=== PATIENT | male | born 2000 | race Caucasian/White ===

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

== ENCOUNTER 2020-05-20 12:52 | Emergency (ER) | payer MEDICAID ==
[2020-05-20] MEDS ORDERED: BUFFERED LIDOCAINE 10 ML SYRINGE SUBQ STA (13:26)
--- NOTE | 2020-05-20 13:28 | ED Physician Documentation ---
History of Present Illness - Stated complaint Stated Complaint: MALE - Chief complaint Chief Complaint: General - History obtained from History obtained from: Patient - Additonal information Additional information: 20-year-old gentleman who chronically has issues with constipation and diarrhea. Recently had a few days worth of diarrhea and was wiping his rear end a lot and then noticed more pain and some purulent drainage today. No fevers. Review of Systems Constitutional: reports: Reviewed and negative Eyes: reports: Reviewed and negative Ears: reports: Reviewed and negative Throat: reports: Reviewed and negative Cardiac: reports: Reviewed and negative Respiratory: reports: Reviewed and negative PD PAST MEDICAL HISTORY - Past Medical History Psych: ADD/ADHD - Past Surgical History Past Surgical History: No Ortho: Other - Present Medications Home Medications: Ambulatory Orders Medication Instructions Recorded Confirmed Benzonatate [Tessalon] 100 mg PO TID PRN #20 capsule 09/02/16 guaiFENesin/DEXTROMETHORPHAN 10 ml PO Q6H PRN #120 ml 09/02/16 [Robitussin Dm] Bacitracin Zinc Oint 1 applic TOP BID #4 tube 02/26/20 Oxycodone HCl/Acetaminophen 1 - 2 each PO Q6H PRN #14 tablet 02/26/20 [Percocet 5-325 mg Tablet] Amox/Clav 875/125 [Augmentin] 1 each PO Q12H #14 tablet 05/20/20 - Allergies Allergies/Adverse Reactions: Allergies Allergy/AdvReac Type Severity Reaction Status Date / Time methylphenidate HCl * AdvReac Severe suicudal Verified 05/20/20 13:02 [From [employer]] - Social History Does the pt smoke?: No Smoking Status: Never smoker Does the pt drink ETOH?: No Does the pt have substance abuse?: No - Immunizations Immunizations are current?: Yes - POLST Patient has POLST: No PD ED PE NORMAL - Vitals Vital signs reviewed: Yes - General General: Alert and oriented X 3, No acute distress - Rectal Rectal: Other (He has a very small perianal abscess at 6:00 with tenderness and mild spontaneous drainage.) - Back Back: No CVA TTP, No spinal TTP - Neuro Neuro: Alert and oriented X 3, Normal speech Results - Vitals Vitals: Vital Signs - 24 hr 05/20/20 05/20/20 12:58 13:20 Temperature 36.6 C 36.6 C Heart Rate 95 95 Respiratory 18 18 Rate Blood Pressure 144/83 H 144/83 H O2 Saturation 99 99 Oxygen O2 Source Room air Procedures - Abscess I&D (location) Perirectal at 6am Preparation: Betadine, Lidocaine 1% Incision: Incised with scalpel, Purulent drainage (small amt) Other: Pt tolerated well, Dressing applied, Antibiotic prescribed PD MEDICAL DECISION MAKING - ED course ED course: 20-year-old gentleman with a small perirectal abscess incompletely but partially drained on initial evaluation. Will do I&D and placed on some antibiotics. Given his ongoing varying bowel symptoms and the association with this at his young age probably needs to follow-up with colonoscopy and will be referred to surgery for same. Departure - Departure Disposition: 01 Home, Self Care Clinical Impression: Perirectal abscess Condition: Good Record reviewed to determine appropriate education?: Yes Instructions: ED Swetha Anal Abscess IandD Follow-Up: Alfredo Meeks MD [Provider Admit Priv/Credential] - Prescriptions: Amox/Clav 875/125 [Augmentin] 1 each PO Q12H #14 tablet Comments: Follow-up with the surgeon listed on this form for wound check and consideration for colonoscopy. Return if worsening.
[2020-05-20 13:41] VITALS: BP 148/82
== END 2020-05-20 13:43 | disposition home or self-care (01) ==
LOC: ED 12:52
DX: K61.1 Rectal abscess (principal)
CPT/HCPCS: 46040

== ENCOUNTER 2020-05-31 08:00 | Outpatient (CLI) | payer MEDICAID ==
[2020-05-31 18:33] LABS: BASOPHILS # (AUTO) 0.1 10^3/uL (0.0-0.1); BASOPHILS % (AUTO) 0.7 %; EOSINOPHILS # (AUTO) 0.3 10^3/uL (0.0-0.7); EOSINOPHILS % (AUTO) 4.6 %; LYMPHOCYTES # (AUTO) 1.9 10^3/uL (1.5-3.5); LYMPHOCYTES % (AUTO) 28.1 %; MEAN CORPUSCULAR HEMOGLOBIN 30.2 pg (27.0-31.0); MEAN CORPUSCULAR HGB CONC 33.5 g/dL (32.0-36.0); MEAN CORPUSCULAR VOLUME 90.3 fL (80.0-94.0); MEAN PLATELET VOLUME 10.2 fL (7.4-11.4); MONOCYTES # (AUTO) 0.5 10^3/uL (0.0-1.0); MONOCYTES % (AUTO) 6.8 %; NEUTROPHILS # (AUTO) 4.1 10^3/uL (1.5-6.6); NEUTROPHILS % (AUTO) 59.5 %; PLT - PLATELET COUNT 294 10^3/uL (130-450); RED BLOOD COUNT 4.63 10^6/uL (4.70-6.10); RED CELL DISTRIBUTION WIDTH 12.9 % (12.0-15.0); WHITE BLOOD COUNT 6.9 x10^3/uL (4.8-10.8)
[2020-05-31 18:59] LABS: ALBUMIN 4.6 g/dL (3.2-5.5); ALBUMIN/GLOBULIN RATIO 1.4 (1.0-2.2); BILIRUBIN,TOTAL 0.9 mg/dL (0.2-1.0); CALCIUM 9.3 mg/dL (8.5-10.3); CREATININE 0.8 mg/dL (0.6-1.2); TOTAL PROTEIN 7.8 g/dL (6.7-8.2)
== END 2020-05-31 23:59 | disposition home or self-care (01) ==
LOC: LAB.WCP 08:00
PROVIDERS: ATTEND Family Medicine
DX: K62.5 Hemorrhage of anus and rectum (principal)
CPT/HCPCS: 36415; 80053; 85025

== ENCOUNTER 2021-09-07 19:09 | Emergency (ER) | payer MEDICAID ==
[2021-09-07 19:42] LABS: BASOPHILS # (AUTO) 0.1 10^3/uL (0.0-0.1); BASOPHILS % (AUTO) 0.7 %; EOSINOPHILS # (AUTO) 0.4 10^3/uL (0.0-0.7); EOSINOPHILS % (AUTO) 4.6 %; HCT - HEMATOCRIT 41.4 % (42.0-52.0); HGB - HEMOGLOBIN 14.2 g/dL (14.0-18.0); LYMPHOCYTES # (AUTO) 2.6 10^3/uL (1.5-3.5); LYMPHOCYTES % (AUTO) 29.5 %; MEAN CORPUSCULAR HEMOGLOBIN 29.8 pg (27.0-31.0); MEAN CORPUSCULAR HGB CONC 34.3 g/dL (32.0-36.0); MEAN CORPUSCULAR VOLUME 86.8 fL (80.0-94.0); MEAN PLATELET VOLUME 9.5 fL (7.4-11.4); MONOCYTES # (AUTO) 0.9 10^3/uL (0.0-1.0); MONOCYTES % (AUTO) 9.5 %; NEUTROPHILS # (AUTO) 4.9 10^3/uL (1.5-6.6); NEUTROPHILS % (AUTO) 55.5 %; PLT - PLATELET COUNT 282 10^3/uL (130-450); RED BLOOD COUNT 4.77 10^6/uL (4.70-6.10); WHITE BLOOD COUNT 8.9 x10^3/uL (4.8-10.8)
[2021-09-07 19:55] LABS: ALBUMIN 4.6 g/dL (3.2-5.5); ALBUMIN/GLOBULIN RATIO 1.4 (1.0-2.2); BILIRUBIN,TOTAL 0.7 mg/dL (0.2-1.0); CALCIUM 9.1 mg/dL (8.5-10.3); CREATININE 0.8 mg/dL (0.6-1.2); POTASSIUM 3.5 mmol/L (3.5-5.0); TOTAL PROTEIN 7.8 g/dL (6.7-8.2)
--- NOTE | 2021-09-07 20:10 | ED Physician Documentation ---
History of Present Illness - Stated complaint Stated Complaint: FAINTED X3/BODY PX/SHAKY - Chief complaint Chief Complaint: General - Additonal information Additional information: 21-year-old male presents emergency department for evaluation of recurrent syncope this morning. 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 He had just removed a tire and then stood up and fainted. He had a very brief lapse of consciousness did not think much of it and went to remove the tire from the other side and again fainted. He states that he felt a sudden numbness in his body right before the fainting but no loss of vision. He denies any chest pain or shortness of air. Patient has no history of previous syncope. No leg swelling. No hormone use. He does smoke tobacco daily. No family history of sudden or early coronary or cardiac disease. He is also reporting that he pulled his shoulder when he fell to the ground and has pain in the anterior shoulder now. No deformity. No history of previous injury. Review of Systems Constitutional: denies: Chills, Fatigue Ears: reports: Reviewed and negative Nose: reports: Reviewed and negative Throat: reports: Reviewed and negative Cardiac: reports: Reviewed and negative Respiratory: reports: Reviewed and negative GI: reports: Reviewed and negative : reports: Reviewed and negative Skin: reports: Reviewed and negative Musculoskeletal: reports: Reviewed and negative Neurologic: reports: Reviewed and negative Psychiatric: reports: Reviewed and negative Endocrine: reports: Polydypsia PD PAST MEDICAL HISTORY - Past Medical History Psych: ADD/ADHD - Past Surgical History Past Surgical History: No Ortho: Other - Present Medications Home Medications: Ambulatory Orders Medication Instructions Recorded Confirmed No Known Home Medications 09/07/21 09/07/21 - Allergies Allergies/Adverse Reactions: Allergies Allergy/AdvReac Type Severity Reaction Status Date / Time methylphenidate HCl * AdvReac Severe suicudal Verified 05/20/20 13:02 [From [employer]] - Social History Does the pt smoke?: No Smoking Status: Never smoker Does the pt drink ETOH?: No Does the pt have substance abuse?: No - Immunizations Immunizations are current?: Yes - POLST Patient has POLST: No Results - Vitals Vitals: Vital Signs - 24 hr 09/07/21 09/07/21 09/07/21 19:16 19:21 20:00 Temperature 36.7 C 36.7 C Heart Rate 85 85 Heart Rate [ 74 Sitting] Heart Rate [ 72 Standing] Heart Rate [ 76 Supine] Respiratory 18 18 Rate Blood Pressure 127/79 127/79 Blood Pressure 136/88 H [Sitting] Blood Pressure 134/88 H [Standing] Blood Pressure 128/78 [Supine] O2 Saturation 99 99 Oxygen O2 Source Room air - EKG (time done) 193 Rate: Rate (enter#) (81) Rhythm: NSR [place]: Normal Intervals: Normal NC QRS: Normal Ischemia: Normal ST segments Compare to prior EKG: Old EKG unavailable Computer interpretation: Agree with computer - Labs Labs: Laboratory Tests 09/07/21 09/07/21 09/07/21 19:28 19:33 19:33 WBC 8.9 RBC 4.77 Hgb 14.2 Hct 41.4 L MCV 86.8 MCH 29.8 MCHC 34.3 RDW 13.0 Plt Count 282 MPV 9.5 Neut # (Auto) 4.9 Lymph # (Auto) 2.6 Ellis # (Auto) 0.9 Eos # (Auto) 0.4 Baso # (Auto) 0.1 Absolute Nucleated RBC 0.00 Nucleated RBC % 0.0 Sodium 136 Potassium 3.5 Chloride 102 Carbon Dioxide 23 Anion Gap 11.0 BUN 10 Creatinine 0.8 Estimated GFR (MDRD) 122 Glucose 85 POC Whole Bld Glucose 85 Calcium 9.1 Total Bilirubin 0.7 AST 32 ALT 39 Alkaline Phosphatase 67 Troponin I High Sens Total Protein 7.8 Albumin 4.6 Globulin 3.2 Albumin/Globulin Ratio 1.4 Lipase 24 Urine Color Urine Clarity Urine pH Ur Specific [place] Urine Protein Urine Glucose (UA) Urine Ketones Urine Occult Blood Urine Nitrite Urine Bilirubin Urine Urobilinogen Ur Leukocyte Esterase Ur Microscopic Review Urine Culture Comments Urine Opiates Screen Ur Oxycodone Screen Urine Methadone Screen Ur Propoxyphene Screen Ur Barbiturates Screen Ur Tricyclics Screen Ur Phencyclidine Scrn Ur Amphetamine Screen U Methamphetamines Scrn U Benzodiazepines Scrn Urine Cocaine Screen U Cannabinoids Screen 09/07/21 09/07/21 19:33 20:01 WBC RBC Hgb Hct MCV MCH MCHC RDW Plt Count MPV Neut # (Auto) Lymph # (Auto) Ellis # (Auto) Eos # (Auto) Baso # (Auto) Absolute Nucleated RBC Nucleated RBC % Sodium Potassium Chloride Carbon Dioxide Anion Gap BUN Creatinine Estimated GFR (MDRD) Glucose POC Whole Bld Glucose Calcium Total Bilirubin AST ALT Alkaline Phosphatase Troponin I High Sens < 2.3 L Total Protein Albumin Globulin Albumin/Globulin Ratio Lipase Urine Color YELLOW Urine Clarity CLEAR Urine pH 6.0 Ur Specific [place] 1.025 Urine Protein NEGATIVE Urine Glucose (UA) NEGATIVE Urine Ketones NEGATIVE Urine Occult Blood NEGATIVE Urine Nitrite NEGATIVE Urine Bilirubin NEGATIVE Urine Urobilinogen 0.2 (NORMAL) Ur Leukocyte Esterase NEGATIVE Ur Microscopic Review NOT INDICATED Urine Culture Comments NOT INDICATED Urine Opiates Screen NEGATIVE Ur Oxycodone Screen NEGATIVE Urine Methadone Screen NEGATIVE Ur Propoxyphene Screen NEGATIVE Ur Barbiturates Screen NEGATIVE Ur Tricyclics Screen NEGATIVE Ur Phencyclidine Scrn NEGATIVE Ur Amphetamine Screen NEGATIVE U Methamphetamines Scrn NEGATIVE U Benzodiazepines Scrn NEGATIVE Urine Cocaine Screen NEGATIVE U Cannabinoids Screen NEGATIVE PD MEDICAL DECISION MAKING - ED course Complexity details: reviewed results, re-evaluated patient, considered differential, d/w patient ED course: 21-year-old male presents emergency department for evaluation of recurrent syncopal episode this morning while at work. He was bending over to lift a heavy tire when he suddenly fainted. He had a very brief lapse in consciousness. He simply got up and went to the other side of the vehicle to remove the other tire when he again fainted. He denies any chest pain or shortness of air. He did strain his right shoulder with his second syncopal event. However he did finish his workday and campus to the ER to be evaluated for his shoulder pain and syncope. On presentation he appears remarkably well. His vital signs are unremarkable. No hypoxia, tachypnea, hypertension. Orthostatics were negative. Screening EKG without worrisome findings and no findings to suggest conduction delay. While here in the ED he has been monitored and noted to be in sinus rhythm without any arrhythmia. Screening labs were also unremarkable. X-ray of the shoulder did not show any findings of a fracture. I suspect that the cause of the syncope may be vasovagal related to straining to lift a heavy tire but given the recurrence I have advised the patient to follow-up with primary care provider. He would benefit from an outpatient echocardiogram and Holter monitor. Emergent worrisome return precautions otherwise discussed. Departure - Departure Disposition: 01 Home, Self Care Clinical Impression: Syncope and collapse Sprain of right shoulder Qualifiers: Encounter type: initial encounter Shoulder sprain type: unspecified sprain Qu alified Code(s): S43.401A - Unspecified sprain of right shoulder joint, initial encounter Condition: Stable Record reviewed to determine appropriate education?: Yes Instructions: ED Fainting Unkn Cause, ED Sprain Shoulder Comments: Jayy you were seen in the emergency department today after fainting few times at work today. Your screening labs, electrolytes, EKG and chest x-ray do not show any worrisome findings. We did check your vital signs and different positions and these were also normal. It is possible that you were simply mildly dehydrated or it is possible that when bearing down to lift the tire you had what is called a vasovagal event. However because you fainted or than once today it is important that you follow- up with your primary care doctor. You should be referred for an echocardiogram of your heart as well as a Holter monitor. This is a device that can monitor your cardiac rhythm over a longer period of time to make sure that there is no abnormal rhythms contributing to your fainting episode. I do recommend that you stay well-hydrated over the next few days. Attempt to drink at least 2 L of water a day. If you develop any further fainting episodes, develop chest pain, have sudden shortness of air or uncontrolled vomiting then please return immediately to the ER for second evaluation The x-ray of your shoulder is normal. I suspect you have sprained it. Please use Tylenol or ibuprofen [id number] for discomfort. Avoid heavy lifting pushing or pulling for the next week. If your pain is not better your primary care doctor may want to do further evaluation or make referral to physical therapy.
[2021-09-07 20:25] LABS: MUDS CUTOFF CONCENTRATIONS CUTOFF CONC BELOW:
[2021-09-07 20:27] LABS: BILIRUBIN,URINE NEGATIVE (NEGATIVE); GLUCOSE, URINE (UA) NEGATIVE (NEGATIVE); KETONES,URINE (UA) NEGATIVE (NEGATIVE); LEUKOCYTE ESTERASE, URINE NEGATIVE (NEGATIVE); NITRITE,URINE NEGATIVE (NEGATIVE); OCCULT BLOOD,URINE NEGATIVE (NEGATIVE); PROTEIN,URINE NEGATIVE (NEGATIVE); UROBILINOGEN,URINE 0.2 (NORMAL) E.U./dL (NORMAL)
[2021-09-07 20:29] LABS: CLARITY,URINE CLEAR (CLEAR)
[2021-09-07 20:40] LABS: AMPHETAMINE SCREEN,URINE NEGATIVE (NEGATIVE); BARBITURATE SCREEN,UR NEGATIVE (NEGATIVE); BENZODIAZEPINES SCREEN, URINE NEGATIVE (NEGATIVE); COCAINE SCREEN URINE NEGATIVE (NEGATIVE); METHADONE SCREEN, URINE NEGATIVE (NEGATIVE); METHAMPHETAMINES SCREEN, URINE NEGATIVE (NEGATIVE); OPIATE SCREEN, URINE NEGATIVE (NEGATIVE); OXYCODONE SCREEN, URINE NEGATIVE (NEGATIVE); PROPOXYPHENE SCREEN, URINE NEGATIVE (NEGATIVE); THC CANNABINOID SCREEN, URINE NEGATIVE (NEGATIVE); TRICYCLIC ANTIDEPRESSANT,URINE NEGATIVE (NEGATIVE)
[2021-09-07 21:04] VITALS: BP 129/70
--- NOTE | 2021-09-07 21:21 | XRAY Report ---
PROCEDURE: Chest 1 View X-Ray INDICATIONS: syncope COMMENTS: LOC X 3 TIMES. RT SIDE PAIN PRIORS: NONE TECHNIQUE: One view of the chest was acquired. COMPARISON: None FINDINGS: Surgical changes and devices: None. Lungs and pleura: No pleural effusions or pneumothorax. Lungs are clear. Mediastinum: Mediastinal contours appear normal. Heart size is normal. Bones and chest wall: No suspicious bony lesions. Overlying soft tissues appear unremarkable. IMPRESSION: No acute cardiopulmonary abnormality Reviewed by: Florentin Rico on 09/07/2021 9:20 PM PST Approved by: Florentin Rico on 09/07/2021 9:20 PM PST Station ID: [id number]
--- NOTE | 2021-09-07 21:22 | XRAY Report ---
PROCEDURE: Shoulder 2 View RT INDICATIONS: pain afer fall/syncope TECHNIQUE: Views of the location were acquired. COMPARISON: None. FINDINGS: Bones: No fractures or dislocations. No suspicious bony lesions. Soft tissues: No suspicious soft tissue calcifications. IMPRESSION: Normal right shoulder Reviewed by: Florentin Rico on 09/07/2021 9:20 PM [facility] [place] Approved by: Florentin Rico on 09/07/2021 9:20 PM [facility] [place] Station ID: [id number]
== END 2021-09-07 21:22 | disposition home or self-care (01) ==
LOC: ED 19:09
DX: S43.401A Unspecified sprain of right shoulder joint, initial encounter (principal); X58.XXXA Exposure to other specified factors, initial encounter; Y99.0 Civilian activity done for income or pay
CPT/HCPCS: 36415; 80053; 80306; 81001; 81003; 83690; 84484; 85025; 87086; 93005; 99284

== ENCOUNTER 2022-06-06 20:53 | Emergency (ER) | payer MEDICAID ==
[2022-06-06] MEDS ORDERED: DEXAMETHASONE 10 MG/ML VIAL PO STA (21:39)
[2022-06-06] MEDS ORDERED: CHERRY SYRUP 10 ML UDC PO ONE (21:39)
[2022-06-06 22:10] LABS: RAPID STREP SCREEN Negative (Negative)
[2022-06-06 22:19] LABS: B. PARAPERTUSSIS- RESP PCR PAN NOT DETECTED; B. PERTUSSIS- RESP PCR PANEL NOT DETECTED; C. PNEUMONIAE- RESP PCR PANEL NOT DETECTED; CORONAVIRUS 229E-RESP PCR NOT DETECTED; CORONAVIRUS HKU1-RESP PCR NOT DETECTED; CORONAVIRUS NL63-RESP PCR NOT DETECTED; CORONAVIRUS OC43-RESP PCR NOT DETECTED; HUMAN METAPNEUMOVIRUS NOT DETECTED; INFLUENZA A H3- RESP PCR PANEL DETECTED; INFLUENZA B - RESP PCR PANEL NOT DETECTED; M. PNEUMONIAE- RESP PCR PANEL NOT DETECTED; PARAINFLUENZA VIRUS 1 NOT DETECTED; PARAINFLUENZA VIRUS 2 NOT DETECTED; PARAINFLUENZA VIRUS 3 NOT DETECTED; PARAINFLUENZA VIRUS 4 NOT DETECTED; RHINOVIRUS/ENTEROVIRUS NOT DETECTED; RSV- RESP PCR PANEL DETECTED; SARS-CoV-2 -RESP PCR PANEL NOT DETECTED
--- NOTE | 2022-06-06 22:35 | ED Physician Documentation ---
PD HPI URI - Stated complaint Stated Complaint: FEVER,SOAR THROAT,DIZZY - Chief complaint Chief Complaint: Fever - History obtained from History obtained from: Patient, Family - History of Present Illness Timing - onset: How many days ago (5) Timing duration: Days (5) Timing details: Gradual onset, Still present Associated symptoms: Fever, Chills, Sweats, Nasal congestion, Rhinorrhea, Sore throat, Dry cough, Dyspnea Contributing factors: Sick contact (daughter sick with similar) Improves by: Rest, Medication Worsened by: Activity Similar symptoms before: Has not had sx before Recently seen: Not recently seen - Additional information Additional information: Previously well 22-year-old Jayy Dhillon has developed a cough and congestion over the past 5 days. He has developed a fever up to 104 and he has aches and pains fever and chills he has had a cough nonproductive as well as some periodic dyspnea. He has a 2-year-old daughter sick with similar symptoms. Review of Systems Constitutional: reports: Fever, Chills, Myalgias, Fatigue, Sweats Eyes: denies: Decreased vision Ears: denies: Ear pain Nose: reports: Rhinorrhea / runny nose, Congestion Throat: reports: Sore throat Cardiac: reports: Chest pain / pressure. denies: Palpitations Respiratory: reports: Dyspnea, Cough, Wheezing GI: denies: Abdominal Pain, Nausea, Vomiting : denies: Dysuria, Frequency PD PAST MEDICAL HISTORY - Past Medical History Past Medical History: Yes Cardiovascular: None Respiratory: None Neuro: None Endocrine/Autoimmune: None GI: None : None HEENT: None Psych: ADD/ADHD Musculoskeletal: None Derm: None - Past Surgical History Past Surgical History: Yes Ortho: Other - Present Medications Home Medications: Ambulatory Orders Medication Instructions Recorded Confirmed No Known Home Medications 09/07/21 06/06/22 - Allergies Allergies/Adverse Reactions: Allergies Allergy/AdvReac Type Severity Reaction Status Date / Time methylphenidate HCl * AdvReac Severe suicudal Verified 06/06/22 21:15 [From [employer]] - Social History Does the pt smoke?: No Smoking Status: Never smoker Does the pt drink ETOH?: No Does the pt have substance abuse?: No - Immunizations Immunizations are current?: Yes - POLST Patient has POLST: No PD ED PE NORMAL - Vitals Vital signs reviewed: Yes (Hypertensive low-grade fever) - General General: Alert and oriented X 3, No acute distress, Well developed/nourished - HEENT HEENT: Atraumatic, PERRL, EOMI, Other (Minimal inflammation to the left TM pharynx is with mild generalized erythema) - Neck Neck: Supple, no meningeal sign, No bony TTP - Cardiac Cardiac: RRR, No murmur - Respiratory Respiratory: No respiratory distress, Clear bilaterally - Abdomen Abdomen: Soft, Non tender - Back Back: No CVA TTP, No spinal TTP - Derm Derm: Normal color, Warm and dry, No rash - Extremities Extremities: No deformity, No edema - Neuro Neuro: Alert and oriented X 3, mri ct tech 2-12 intact, No motor deficit, No sensory deficit, Normal speech Eye Opening: Spontaneous Motor: Obeys Commands Verbal: Oriented GCS Score: 15 - Psych Psych: Normal mood, Normal affect Results - Vitals Vitals: Vital Signs - 24 hr 06/06/22 21:05 Temperature 38.2 C H Heart Rate 90 Respiratory 16 Rate Blood Pressure 129/81 H O2 Saturation 98 Oxygen O2 Source Room air - Labs Labs: Laboratory Tests 06/06/22 06/06/22 21:25 21:57 Nasal Adenovirus (PCR) NOT DETECTED Nasal B. parapertussis DNA (PCR) NOT DETECTED Nasal Coronavir 229E PCR NOT DETECTED Nasal Coronavir HKU1 PCR NOT DETECTED Nasal Coronavir NL63 PCR NOT DETECTED Nasal Coronavir OC43 PCR NOT DETECTED Nasal Enterovir/Rhinovir PCR NOT DETECTED Nasal Influenza A H3 PCR DETECTED A Nasal Influenza B PCR NOT DETECTED Nasal Parainfluen 1 PCR NOT DETECTED Nasal Parainfluen 2 PCR NOT DETECTED Nasal Parainfluen 3 PCR NOT DETECTED Nasal Parainfluen 4 PCR NOT DETECTED Nasal RSV (PCR) DETECTED A Nasal B.pertussis DNA PCR NOT DETECTED Nasal C.pneumoniae (PCR) NOT DETECTED Jeff Human Metapneumo PCR NOT DETECTED Nasal M.pneumoniae (PCR) NOT DETECTED Nasal SARS-CoV-2 (PCR) NOT DETECTED Group A Strep Rapid Negative PD MEDICAL DECISION MAKING - ED course Complexity details: considered differential, d/w patient, d/w family ED course: 22-year-old male presents to the emergency department with URI symptoms consistent with a viral URI he has no evidence of otitis on exam. His rapid strep is negative. He has 2 separate viruses in both influenza A and RSV.Here in the emergency department he is administered dexamethasone with improvement of symptoms. Is instructed on treatment for URI viral to include additional fluids and Tylenol for fever control. The patient is expected to recover Departure - Departure Disposition: 01 Home, Self Care Clinical Impression: Influenza A, RSV infection Condition: Stable Instructions: ED Flu, ED Viral Syndrome Follow-Up: Lacey Hearn ARNP [Provider Admit Priv/Credential] - Comments: Jayy, today it looks like you have 2 viruses. It looks like you have influenza a which is the common flu and RSV which is a respiratory syncytial virus that usually causes some cough and wheezing. Today on exam we did not hear any wheezing. Our expectation with the treatment we are you were given today with the dexamethasone is that you will have continued improvement and resolution of this illness within the next 5 days. I have given you instructions on influenza and viral syndrome. The important point being to remain hydrated and treat any fever with Tylenol or Advil. If you develop worsening shortness of breath we are here 24 hours a day. I did not feel you needed an inhaler today and you wi ll likely recover without requiring this.
[2022-06-06 22:53] VITALS: BP 122/68
== END 2022-06-06 22:50 | disposition home or self-care (01) ==
LOC: ED 20:53
DX: J10.1 Influenza due to other identified influenza virus with other respiratory manifestations (principal); B97.4 Respiratory syncytial virus as the cause of diseases classified elsewhere; Z20.822 Contact with and (suspected) exposure to COVID-19
CPT/HCPCS: 87070; 87430; 87633; 99282; 99283; A9270

== ENCOUNTER 2022-12-16 08:08 | Emergency (ER) | payer MEDICAID ==
[2022-12-16 08:14] VITALS: BP 155/85
--- NOTE | 2022-12-16 08:29 | ED Physician Documentation ---
PD HPI NECK PAIN - Stated complaint Stated Complaint: NECK PX - Chief complaint Chief Complaint: Trauma Hd/Nk - History obtained from History obtained from: Patient - Additional information Additional information: Otherwise healthy 22-year-old gentleman has had neck pain for the last 24 hours. It is mild at rest but hurts a lot if he turns his head or flex or extend his head. Because of that he does not feel like he can work today. There was no specific injury. No weakness, numbness, tingling in the upper extremities. No fevers. PD PAST MEDICAL HISTORY - Past Medical History Cardiovascular: None Respiratory: None Neuro: None Endocrine/Autoimmune: None GI: None : None HEENT: None Psych: ADD/ADHD Musculoskeletal: None Derm: None - Past Surgical History Past Surgical History: Yes Ortho: Other - Present Medications Home Medications: Ambulatory Orders Medication Instructions Recorded Confirmed Cyclobenzaprine [Flexeril] 10 mg PO TID PRN #20 tablet 12/16/22 Ibuprofen [Motrin] 800 mg PO Q8H PRN #30 tablet 12/16/22 - Allergies Allergies/Adverse Reactions: Allergies Allergy/AdvReac Type Severity Reaction Status Date / Time methylphenidate HCl * AdvReac Severe suicudal Verified 12/16/22 08:14 [From [employer]] - Social History Does the pt smoke?: No Smoking Status: Never smoker Does the pt drink ETOH?: No Does the pt have substance abuse?: No - Immunizations Immunizations are current?: Yes - POLST Patient has POLST: No PD ED PE NORMAL - Vitals Vital signs reviewed: Yes - General General: Alert and oriented X 3, No acute distress - HEENT HEENT: PERRL, EOMI - Neck Neck: Other (Diffuse muscular tenderness of both sides of the neck with full range of motion albeit with some pain. The worst thing for him is rotation to the left.) - Cardiac Cardiac: RRR, No murmur - Respiratory Respiratory: No respiratory distress, Clear bilaterally - Neuro Neuro: Alert and oriented X 3, lowerator operator 2-12 intact, No motor deficit, No sensory deficit, Normal speech Eye Opening: Spontaneous Motor: Obeys Commands Verbal: Oriented GCS Score: 15 - Psych Psych: Normal mood, Normal affect Results - Vitals Vitals: Vital Signs - 24 hr 12/16/22 08:12 Temperature 36.5 C Heart Rate 79 Respiratory 16 Rate Blood Pressure 155/85 H O2 Saturation 100 Oxygen O2 Source Room air PD Medical Decision Making - ED course ED course: 22-year-old gentleman with nonconcerning muscular neck pain. Nothing in the history or physical to suggest anything like a neck fracture, vascular issue, or meningitis. Departure - Departure Disposition: 01 Home, Self Care Clinical Impression: Neck muscle spasm Condition: Good Record reviewed to determine appropriate education?: Yes Instructions: ED Sprain Strain Neck, ED Spasm Neck No Injury Prescriptions: Cyclobenzaprine [Flexeril] 10 mg PO TID PRN #20 tablet PRN Reason: Spasms Ibuprofen [Motrin] 800 mg PO Q8H PRN #30 tablet PRN Reason: PAIN &/OR FEVER Comments: Heat with gentle range of motion exercises for the next couple of days. Follow- up with your primary care physician for recheck, within the week if not improving, return for new or worsening symptoms. Forms: Activity restrictions
== END 2022-12-16 08:32 | disposition home or self-care (01) ==
LOC: ED 08:08
DX: M62.838 Other muscle spasm (principal)
CPT/HCPCS: 99282; 99283

== ENCOUNTER 2022-12-24 10:12 | Emergency (ER) | payer MEDICAID ==
[2022-12-24 10:20] VITALS: BP 122/77
--- NOTE | 2022-12-24 10:44 | ED Physician Documentation ---
PD HPI BACK PAIN - Stated complaint Stated Complaint: BACK PX - Chief complaint Chief Complaint: Back Pain - History obtained from History obtained from: Patient - History of Present Illness Timing - onset: How many weeks ago (several weeks of thoracic pain with movement and shoulders use. No noted abrupt injury. Seen prior for this with Rx Ibuprofen and Flexeril. Not improved. 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 No: Trauma Similar symptoms before: Has not had sx before Recently seen: Emergency Dept Review of Systems Constitutional: denies: Fever, Chills Nose: denies: Rhinorrhea / runny nose, Congestion Throat: denies: Sore throat Respiratory: denies: Cough Skin: denies: Rash, Lesions PD PAST MEDICAL HISTORY - Past Medical History Cardiovascular: None Respiratory: None Neuro: None Endocrine/Autoimmune: None GI: None : None HEENT: None Psych: ADD/ADHD Musculoskeletal: None Derm: None - Past Surgical History Past Surgical History: Yes Ortho: Other - Present Medications Home Medications: Ambulatory Orders Medication Instructions Recorded Confirmed Cyclobenzaprine [Flexeril] 10 mg PO TID PRN #20 tablet 12/16/22 12/24/22 Ibuprofen [Motrin] 800 mg PO Q8H PRN #30 tablet 12/16/22 12/24/22 HYDROcod/ACETAM 5/325 [[place] 5/325] 1 ea PO Q6H PRN #15 tablet 12/24/22 Meloxicam [Mobic] 7.5 mg PO BID 10 Days #20 tablet 12/24/22 methocarbamoL [Robaxin] 500 mg PO Q6H PRN #30 tablet 12/24/22 - Allergies Allergies/Adverse Reactions: Allergies Allergy/AdvReac Type Severity Reaction Status Date / Time methylphenidate HCl * AdvReac Severe suicudal Verified 12/24/22 10:15 [From [email or web address]] - Social History Does the pt smoke?: No Smoking Status: Never smoker Does the pt drink ETOH?: No Does the pt have substance abuse?: No - Immunizations Immunizations are current?: Yes - POLST Patient has POLST: No PD ED PE NORMAL - Vitals Vital signs reviewed: Yes - General General: Alert and oriented X 3, No acute distress, Well developed/nourished - Cardiac Cardiac: RRR, No murmur - Respiratory Respiratory: No respiratory distress, Clear bilaterally - Abdomen Abdomen: Soft, Non tender - Back Back: No spinal TTP (tender parathoracic muscles at lower scapular line area. No rash nor sores. ) - Neuro Neuro: No motor deficit, No sensory deficit Results - Vitals Vitals: Oxygen O2 Source Room air - Rads (name of study) thoracic spine Relevant Findings:: Prelim report reviewed (no acute process), See rad report PD Medical Decision Making - ED course Complexity details: considered differential (no noted forceful injury but does upper body use as stationary equipment mechanic so got plain xray to eval for such as compression fx, disc height loss. No symptoms to suggest need for MRI, such as weakness, fevers, escalating severity, etc. ), d/w patient Departure - Departure Disposition: 01 Home, Self Care Clinical Impression: Acute thoracic back pain Qualifiers: Back pain laterality: unspecified Qualified Code(s): M54.6 - Pain in thoracic spine Condition: Stable Record reviewed to determine appropriate education?: Yes Instructions: ED Sprain Thoracic Spine Follow-Up: [facility] [Provider Group] [facility] [Provider Group] Prescriptions: Meloxicam [Mobic] 7.5 mg PO BID 10 Days #20 tablet HYDROcod/ACETAM 5/325 [[place] 5/325] 1 ea PO Q6H PRN #15 tablet PRN Reason: Pain methocarbamoL [Robaxin] 500 mg PO Q6H PRN #30 tablet PRN Reason: Spasms Comments: The x-ray did not show any obvious acute abnormalities or chronic changes. Most pains like this will relate to muscles and ligaments. We can try a different anti-inflammatory and muscle relaxant. To that add Tylenol every 4-6 hours if needed for pain. Add hydrocodone only if needed for severe pain greater than 6 out of 10. Off work for a few days due to the acute injury. I sent your prescriptions to the [facility] pharmacy. I provided a couple of clinic names and numbers to call and see if they are able to get you in as new patients. Forms: Activity restrictions Discharge Date/Time: 12/24/22 12:10
--- NOTE | 2022-12-24 11:07 | XRAY Report ---
PROCEDURE: Thoracic Spine 2 View INDICATIONS: lower thoracic pain TECHNIQUE: 3 views of the thoracic spine were acquired. COMPARISON: None. FINDINGS: Bones: No fractures or dislocations. No suspicious bony lesions. 12 pairs of ribs are noted, and a ppear intact where visualized. Soft tissues: No paravertebral stripe thickening. IMPRESSION: No compression fracture or spondylolisthesis in thoracic spine. Reviewed by: Misha Schmidt MD on 12/24/2022 11:06 AM PDT Approved by: Misha Schmidt MD on 12/24/2022 11:06 AM PDT Station ID: [id number]
== END 2022-12-24 12:10 | disposition home or self-care (01) ==
LOC: ED 10:12
DX: M54.6 Pain in thoracic spine (principal)
CPT/HCPCS: 99283

== ENCOUNTER 2023-03-03 16:46 | Emergency (ER) | payer MEDICAID ==
[2023-03-03 16:59] VITALS: BP 133/74; O2SAT 98
--- NOTE | 2023-03-03 17:31 | XRAY Report ---
PROCEDURE: Ankle 3 View RT INDICATIONS: pain after fall TECHNIQUE: 3 views of the ankle were acquired. COMPARISON: None. FINDINGS: Bones: No fractures or dislocations. Ankle mortise is normally aligned. No suspicious bony lesions . Soft tissues: Lateral ankle soft tissue swelling is noted. No tibiotalar joint effusion. Achilles te ndon appears normal. IMPRESSION: No acute bony abnormality. Lateral ankle soft tissue swelling. Ankle mortise is congruent. Reviewed by: Misha Schmidt MD on 03/03/2023 5:29 PM PDT Approved by: Misha Schmidt MD on 03/03/2023 5:29 PM PDT Station ID: [id number]
--- NOTE | 2023-03-03 17:48 | ED Physician Documentation ---
PD HPI LOWER EXT INJURY - Chief complaint Chief Complaint: Trauma Ext - Additional information Additional information: 23 year-old male presents with right ankle pain. He was running yesterday and believes he rolled his ankle and has some pain mid portion of the ankle. He has not noted any swelling, no erythema. He has not attempted any medication for this. PD PAST MEDICAL HISTORY - Past Medical History Past Medical History: No Cardiovascular: None Respiratory: None Neuro: None Endocrine/Autoimmune: None GI: None : None HEENT: None Psych: ADD/ADHD Musculoskeletal: None Derm: None - Past Surgical History Past Surgical History: Yes Ortho: Other - Present Medications Home Medications: Ambulatory Orders Medication Instructions Recorded Confirmed Ibuprofen [Motrin] 800 mg PO Q8H PRN #30 tablet 12/16/22 03/03/23 HYDROcod/ACETAM 5/325 [[place] 5/325] 1 ea PO Q6H PRN #15 tablet 12/24/22 03/03/23 methocarbamoL [Robaxin] 500 mg PO Q6H PRN #30 tablet 12/24/22 03/03/23 - Allergies Allergies/Adverse Reactions: Allergies Allergy/AdvReac Type Severity Reaction Status Date / Time methylphenidate HCl * AdvReac Severe suicudal Verified 03/03/23 16:51 [From [employer]] - Social History Does the pt smoke?: No Smoking Status: Never smoker Does the pt drink ETOH?: No Does the pt have substance abuse?: No - Immunizations Immunizations are current?: Yes - POLST Patient has POLST: No PD ED PE NORMAL - Vitals Vital signs reviewed: Yes - General General: Alert and oriented X 3, No acute distress, Well developed/nourished - Extremities Extremities: No deformity, No edema, Other (Pain with dorsiflexion, no obvious swelling, mild tenderness in the mid ankle, no tenderness of the med/lat ankle or med/lateral malleoli) Results - Vitals Vitals: Vital Signs - 24 hr 03/03/23 16:51 Temperature 36.9 C Heart Rate 81 Respiratory 16 Rate Blood Pressure 133/74 H O2 Saturation 98 Oxygen O2 Source Room air PD Medical Decision Making - ED course Complexity details: reviewed results, re-evaluated patient, d/w patient ED course: 20-year-old male presenting with right ankle pain as described in HPI. Is well- appearing on physical exam, no obvious deformity or injury, no erythema. We obtained an x-ray which is negative. Patient likely has ankle sprain was advised of supportive measures including Tylenol ibuprofen cool compress light compression. He can weight-bear as tolerated. He was advised to follow-up if no improvement in the next 1 to 2 weeks. Departure - Departure Disposition: 01 Home, Self Care Clinical Impression: Ankle sprain Qualifiers: Encounter type: initial encounter Involved ligament of ankle: unspecified ligament Laterality: right Qualified Code(s): S93.401A - Sprain of unspecified ligament of right ankle, initial encounter Condition: Good Instructions: ED Sprain Ankle W X Ray Forms: PCP List
== END 2023-03-03 17:50 | disposition home or self-care (01) ==
LOC: ED 16:46
DX: S93.401A Sprain of unspecified ligament of right ankle, initial encounter (principal); X50.1XXA Overexertion from prolonged static or awkward postures, initial encounter; Y93.02 Activity, running
CPT/HCPCS: 99283

== ENCOUNTER 2023-06-05 17:33 | Emergency (ER) | payer MEDICAID ==
[2023-06-05 17:39] VITALS: BP 126/80; O2SAT 99
[2023-06-05] MEDS ORDERED: CHERRY SYRUP 10 ML UDC PO ONE (18:04)
[2023-06-05] MEDS ORDERED: DEXAMETHASONE 10 MG/ML VIAL PO STA (18:04)
[2023-06-05] MEDS ORDERED: IBUPROFEN 800 MG TABLET PO STA (18:04)
[2023-06-05] MEDS ORDERED: PENICILLIN VK 250 MG TABLET PO STA (18:04)
--- NOTE | 2023-06-05 18:06 | XRAY Report ---
PROCEDURE: Foot 3 View LT INDICATIONS: Trauma TECHNIQUE: 3 views of the foot were acquired. COMPARISON: None. FINDINGS: Bones: No fractures or dislocations. No suspicious bony lesions. Soft tissues: No suspicious soft tissue calcifications or masses. IMPRESSION: No acute bony abnormality. Reviewed by: Thai Gale MD on 06/05/2023 5:04 PM [facility] Approved by: Thai Gale MD on 06/05/2023 5:04 PM [facility] Station ID: [id number]
--- NOTE | 2023-06-05 18:11 | ED Physician Documentation ---
History of Present Illness - Stated complaint Stated Complaint: L FOOT PX - Chief complaint Chief Complaint: Ext Problem - History obtained from History obtained from: Patient - Additonal information Additional information: 23 year old male with L foot pain. Does not recall any specific injury. He does work in [employer] and does spend most of the day on his feet. The pain is mainly on the dorsum of the foot over the first metatarsal. No redness. No swelling. No tenderness to palpation. Worse with movement. Better with rest. He is also complaining of left upper dental pain. He is working with a dentist but states the pain has been increasing. No facial swelling. No fevers. No chills. Review of Systems Constitutional: denies: Fever, Chills Nose: denies: Rhinorrhea / runny nose, Congestion Respiratory: denies: Dyspnea, Cough GI: denies: Nausea, Vomiting, Diarrhea Skin: denies: Rash Musculoskeletal: denies: Neck pain, Back pain Neurologic: denies: Headache PD PAST MEDICAL HISTORY - Past Medical History Past Medical History: Yes Cardiovascular: None Respiratory: None Neuro: None Endocrine/Autoimmune: None GI: None : None HEENT: None Psych: ADD/ADHD Musculoskeletal: None Derm: None - Past Surgical History Past Surgical History: Yes Ortho: Other - Present Medications Home Medications: Ambulatory Orders Medication Instructions Recorded Confirmed HYDROcod/ACETAM 5/325 [[place] 5/325] 1 - 2 ea PO Q6H PRN #14 tablet 06/05/23 Ibuprofen [Motrin] 800 mg PO Q8H PRN #30 tablet 06/05/23 Penicillin V Potassium 500 mg PO Q6HR #40 tablet 06/05/23 - Allergies Allergies/Adverse Reactions: Allergies Allergy/AdvReac Type Severity Reaction Status Date / Time methylphenidate HCl * AdvReac Severe suicudal Verified 06/05/23 17:36 [From [employer]] - Social History Does the pt smoke?: No Smoking Status: Never smoker Does the pt drink ETOH?: No Does the pt have substance abuse?: No - Immunizations Immunizations are current?: Yes - POLST Patient has POLST: No PD ED PE NORMAL - Vitals Vital signs reviewed: Yes - General General: Alert and oriented X 3, No acute distress - HEENT HEENT: PERRL, Moist mucous membranes, Pharynx benign, Other (Dental caries left upper molar. No gingival swelling. No abscess. Normal phonation. No trismus.) - Neck Neck: Supple, no meningeal sign - Cardiac Cardiac: RRR, Strong equal pulses - Respiratory Respiratory: No respiratory distress, Clear bilaterally - Abdomen Abdomen: Soft, Non tender, Non distended - Derm Derm: Warm and dry - Extremities Extremities: Other (L foot - No tenderness to palpation on the plantar aspect of the left foot. No swelling. No tenderness. No bony tenderness over the left foot. There is pain with range of motion of the great toe, and goes up the te ndon sheath. Normal examined to the ankle, remainder of the foot and left lower e) - Neuro Neuro: Alert and oriented X 3 - Psych Psych: Normal mood, Normal affect Results - Vitals Vitals: Vital Signs - 24 hr 06/05/23 17:36 Temperature 36.5 C Heart Rate 83 Respiratory 16 Rate Blood Pressure 126/80 O2 Saturation 99 Oxygen O2 Source Room air - Rads (name of study) Left foot x-ray Relevant Findings:: Final report received, See rad report PD Medical Decision Making - ED course Complexity details: reviewed results, re-evaluated patient, considered differential (No evidence of gout, cellulitis, joint infection), d/w patient ED course: 23-year-old male with what appears to be a tendinitis of the left great toe. We will place on anti-inflammatory medications for home. Recommend that he wear hard soled shoe. X-ray does not show any acute abnormalities. Patient also has dental caries causing dental pain. Will place on antibiotics and pain medication for this. He would follow-up with his dentist for further care. Patient counseled regarding signs and symptoms for which I believe and urgent re-evaluation would be necessary. Patient with good understanding of and agreement to plan and is comfortable going home at this time This document was made in part using voice recognition software. While efforts are made to proofread this document, sound alike and grammatical errors may occur. Departure - Departure Disposition: 01 Home, Self Care Clinical Impression: Dental caries, Foot tendinitis Condition: Good Instructions: ED Tooth Pain, Tendonitis and Tenosynovitis Follow-Up: your,doctor in 1 week [Other] Prescriptions: Penicillin V Potassium 500 mg PO Q6HR #40 tablet Ibuprofen [Motrin] 800 mg PO Q8H PRN #30 tablet PRN Reason: PAIN &/OR FEVER HYDROcod/ACETAM 5/325 [[place] 5/325] 1 - 2 ea PO Q6H PRN #14 tablet PRN Reason: Pain Comments: Your prescriptions were sent to [facility] in [place]. Please take all antibiotics until gone. Please follow-up with a dentist for your tooth pain. It is recommended that you wear stiff soled shoes at work, these will help to support your arches and help to take stress off your tendons. Please return if you worsen. I am prescribing a short course of narcotic pain medication for you. These are potentially dangerous and addictive medications that should be used carefully. These medications may constipate you. Take an pdaa-[id number] stool softener (docusate) twice daily with plenty of water while taking these medications. If you go 24 hours without a bowel movement, take [id number] miralax, per package instructions. Do not drink or drive while taking these medications. If you received narcotic or sedating medications while in the emergency department, do not drive for 24 hours. Store this medication in a safe, secure place and out of reach of children. It is a violation of federal law to give or sell this medication to another person or to use in a manner other than prescribed. The ED will not refill narcotic prescriptions, including prescriptions lost or stolen. To dispose of unwanted medications: 1. [facility] [address] in [place] has a medication drop box. They accept prescription medications (in pill form) Friday through Friday 9:00 a.m. to 5:00 p.m. 2. The [facility] accepts prescription medications (in pill form only) for disposal year round. Call for more information. 3. Contact the [facility] for the next [facility] sponsored prescription drug collection event. , [phone], or [phone]; Forms: PCP List
== END 2023-06-05 18:28 | disposition home or self-care (01) ==
LOC: ED 17:33
DX: M77.8 Other enthesopathies, not elsewhere classified (principal); K02.9 Dental caries, unspecified
CPT/HCPCS: 73630; 99283; A9270

== ENCOUNTER 2023-06-25 12:25 | Emergency (ER) | payer MEDICAID ==
[2023-06-25 12:39] VITALS: BP 136/73; O2SAT 100
--- NOTE | 2023-06-25 12:46 | ED Physician Documentation ---
History of Present Illness - Stated complaint Stated Complaint: LUMP IN THROAT - Chief complaint Chief Complaint: Heent - Additonal information Additional information: 23-year-old male presents emergency department for evaluation of sensation that something is stuck in his throat. He woke up this morning with a sensation. He denies any recent cough, cold congestion or fevers. He has normal phonation, normal swallow. Denies inability to tolerate food or liquids. Has no previous history of strep or esophageal food impaction. Vital signs in the emergency department were without worrisome findings Review of Systems Constitutional: denies: Fever, Chills Nose: denies: Rhinorrhea / runny nose, Congestion Throat: reports: Sore throat Cardiac: reports: Reviewed and negative Respiratory: reports: Reviewed and negative GI: reports: Reviewed and negative PD PAST MEDICAL HISTORY - Past Medical History Past Medical History: Yes Cardiovascular: None Respiratory: None Neuro: None Endocrine/Autoimmune: None GI: None : None HEENT: None Psych: ADD/ADHD Musculoskeletal: None Derm: None - Past Surgical History Past Surgical History: Yes Ortho: Other - Present Medications Home Medications: Ambulatory Orders Medication Instructions Recorded Confirmed No Known Home Medications 06/25/23 06/25/23 - Allergies Allergies/Adverse Reactions: Allergies Allergy/AdvReac Type Severity Reaction Status Date / Time methylphenidate HCl * AdvReac Severe suicudal Verified 06/25/23 12:28 [From [employer]] - Social History Does the pt smoke?: No Smoking Status: Never smoker Does the pt drink ETOH?: No Does the pt have substance abuse?: No - Immunizations Immunizations are current?: Yes - POLST Patient has POLST: No PD ED PE EXPANDED - HEENT HEENT: Pharyngeal erythema, Other (Chronically enlarged normal phonation, normal swallow. Full range of motion of the neck. No tender cervical lymphadenopathy. Mild posterior air pharynx erythema without exudate. Chronically enlarged tonsils. Uvula is midline. No soft palate asymmetry or swelling.) Results - Vitals Vitals: Vital Signs - 24 hr 06/25/23 12:28 Temperature 36.5 C Heart Rate 90 Respiratory 16 Rate Blood Pressure 136/73 H O2 Saturation 100 Oxygen O2 Source Room air - Labs Labs: Laboratory Tests 06/25/23 12:40 Group A Strep Rapid Negative PD Medical Decision Making - ED course Complexity details: reviewed results, re-evaluated patient, d/w patient ED course: 23-year-old male presents emergency department for sensation of something stuck in his throat. He woke up from sleep this way but went to bed feeling well. History was not suggestive of an esophageal food impaction. The ENT and oropharynx exam was rather unremarkable sparing mild chronic tonsillar hypertrophy and some posterior oropharynx erythema. Rapid strep testing was negative. Clinically I suspect this patient has a mild URI causing the sore throat. I have made the recommendation for Tylenol and Motrin. Clinically there is nothing to suggest an RPA or CHIEF EXECUTIVE OR MANAGING DIRECTOR. Patient has no evidence of dysfunction with swallowing or phonation. He is discharged home in stable condition with usual emergent return precautions discussed for worsening symptoms. Departure - Departure Disposition: 01 Home, Self Care Clinical Impression: Sore throat Condition: Stable Record reviewed to determine appropriate education?: Yes Comments: You came to the emergency department today because you woke up this morning with a sensation of something stuck in your throat. As discussed at the bedside the exam of your throat showed some mild redness of your oropharynx and some enlarged tonsils that appear chronic. However there was nothing to suggest strep throat, a retropharyngeal abscess or a peritonsillar abscess. In general I would make the recommendation for you to take Tylenol and Motrin [id number] for the next several days. Please return to the ER if you are having any new or worsening symptoms, develop fevers, inability to speak or swallow normally. Forms: PCP List
[2023-06-25 13:07] LABS: RAPID STREP SCREEN Negative (Negative)
== END 2023-06-25 13:22 | disposition home or self-care (01) ==
LOC: ED 12:25
DX: R07.0 Pain in throat (principal)
CPT/HCPCS: 87070; 87430; 99283

== ENCOUNTER 2023-10-10 14:21 | Outpatient (CLI) | payer MEDICAID | END 2023-10-10 14:22 | disposition EMS.NT | LOC: EMS 14:21 | DX: S61.411A Laceration without foreign body of right hand, initial encounter (principal); W25.XXXA Contact with sharp glass, initial encounter; W22.8XXA Striking against or struck by other objects, initial encounter; Y92.019 Unspecified place in single-family (private) house as the place of occurrence of the external cause ==